=== PATIENT | female | born 1995 | race Caucasian/White ===

== ENCOUNTER 2016-08-23 17:27 | Observation (INO) | payer SELFPAY ==
[~2016-08-23] VITALS: Ht 162.6 cm; Wt 122.5 kg
[~2016-08-23 17:27] MED LIST: PREN-95 PO
== END 2016-08-23 20:40 | disposition home or self-care (01) ==
LOC: L&D 17:27
PROVIDERS: ADMIT Obstetrics & Gynecology; ATTEND Obstetrics & Gynecology
DX: O26.893 Other specified pregnancy related conditions, third trimester (principal); R10.9 Unspecified abdominal pain; Z3A.36 36 weeks gestation of pregnancy
CPT/HCPCS: G0378 ×2

== ENCOUNTER 2017-01-13 12:05 | Emergency (ER) | payer SELFPAY ==
[~2017-01-13] VITALS: Ht 167.6 cm; Wt 84.0 kg
[2017-01-13 12:11] VITALS: BP 133/87
== END 2017-01-13 12:45 | disposition left against medical advice (07) ==
LOC: ER 12:16
DX: M79.672 Pain in left foot (principal); Z88.0 Allergy status to penicillin
CPT/HCPCS: 81025; 99283

== ENCOUNTER 2017-04-29 10:31 | Emergency (ER) | payer SELFPAY | END 2017-04-29 11:53 | disposition left against medical advice (07) | LOC: ER 11:49 | DX: N89.8 Other specified noninflammatory disorders of vagina (principal); Z53.21 Procedure and treatment not carried out due to patient leaving prior to being seen by health care provider ==

== ENCOUNTER 2017-04-29 12:53 | Emergency (ER) | payer SELFPAY ==
[~2017-04-29] VITALS: Ht 162.6 cm; Wt 118.0 kg
[2017-04-29 14:03] VITALS: BP 138/82
== END 2017-04-29 19:09 | disposition left against medical advice (07) ==
LOC: ER 15:43
DX: N89.8 Other specified noninflammatory disorders of vagina (principal); Z53.21 Procedure and treatment not carried out due to patient leaving prior to being seen by health care provider

== ENCOUNTER 2017-07-07 01:49 | Emergency (ER) | payer SELFPAY ==
[~2017-07-07] VITALS: Ht 170.2 cm; Wt 124.8 kg
[2017-07-07 02:06] VITALS: BP 141/95
== END 2017-07-07 03:34 | disposition left against medical advice (07) ==
LOC: ER 01:49
DX: Z53.21 Procedure and treatment not carried out due to patient leaving prior to being seen by health care provider (principal)
CPT/HCPCS: 81025

== ENCOUNTER 2017-09-27 17:14 | Observation (INO) | payer SELFPAY ==
[~2017-09-27] VITALS: Ht 165.1 cm; Wt 131.5 kg
== END 2017-09-27 18:10 | disposition home or self-care (01) ==
LOC: L&D 17:14
PROVIDERS: ADMIT Specialist; ATTEND Specialist
DX: O62.9 Abnormality of forces of labor, unspecified (principal); Z3A.38 38 weeks gestation of pregnancy
CPT/HCPCS: 99281; G0378

== ENCOUNTER 2017-10-02 07:48 | Observation (INO) | payer MEDICAID ==
[~2017-10-02] VITALS: Ht 162.6 cm; Wt 131.5 kg
[2017-10-02] MEDS ORDERED: LACTATED RINGERS 1,000 ML IV SCH (09:10)
[2017-10-02 09:43] LABS: BASOPHILS % 0.3 % (0.0-2.0); HEMATOCRIT. 31.4 % (36.0-48.0); HEMOGLOBIN. 10.5 g/dL (12.0-16.0); LYMPHOCYTES % 22.8 % (20.0-50.0); MEAN CORPUSCULAR HEMOGLOBIN 26.8 pg (28.0-32.0); NEUTROPHILS % 66.9 % (40.0-76.0); RED BLOOD CELL COUNT 3.92 mill/uL (4.2-5.4); RED CELL DISTRIBUTION WIDTH 15.2 % (11.6-14.6)
[2017-10-02 09:43] LABS: CLARITY URINE CLOUDY (CLEAR); COLOR URINE YELLOW (YELLOW); KETONES URINE NEGATIVE (NEGATIVE); LEUKOCYTE ESTERASE URINE 1+ (NEGATIVE); NITRITE URINE NEGATIVE (NEGATIVE); OCCULT BLOOD URINE NEGATIVE (NEGATIVE); PROTEIN URINE NEGATIVE (NEGATIVE); SPECIFIC GRAVITY URINE 1.014 (1.005-1.030); UROBILINOGEN URINE 0.2 E.U./dL (0.2-1.0)
[2017-10-02 09:49] LABS: CHLORIDE 106 mEq/L (98-107)
[2017-10-02 09:55] LABS: INR 0.9; PROTHROMBIN TIME 9.4 sec (9.1-11.1)
[2017-10-02 10:24] LABS: PLATELET 128 x1000/uL (130-400)
== END 2017-10-02 11:43 | disposition home or self-care (01) ==
LOC: L&D 07:48
PROVIDERS: ADMIT Obstetrics & Gynecology; ATTEND Obstetrics & Gynecology
DX: O26.893 Other specified pregnancy related conditions, third trimester (principal); R10.30 Lower abdominal pain, unspecified; M54.5 Low back pain; Z3A.38 38 weeks gestation of pregnancy
CPT/HCPCS: 36415; 80053; 81003; 85025; 85384; 85610; 96360; 99281; G0378; J7120; 96361

== ENCOUNTER 2019-07-11 18:46 | Emergency (ER) | payer MEDICAID ==
[~2019-07-11] VITALS: Ht 162.6 cm; Wt 131.0 kg
[2019-07-11] MEDS ORDERED: ONDANSETRON HCL 4MG/2ML INJ IV STA (19:34)
[2019-07-11] MEDS ORDERED: MORPHINE SULFATE 4 MG/ML CPJ (NOT FOR IM USE) IV STA (19:34)
[2019-07-11] MEDS ORDERED: SODIUM CHLORIDE 0.9% 1,000 ML IV ONE (19:34)
[2019-07-11 20:13] LABS: BASOPHILS % 0.6 % (0.0-2.0); EOSINOPHILS % 1.4 % (0.0-5.0); HEMATOCRIT. 41.5 % (36.0-48.0); HEMOGLOBIN. 14.3 g/dL (12.0-16.0); LYMPHOCYTES % 18.3 % (20.0-50.0); MEAN CORPUSCULAR VOLUME 86.8 fL (81.0-99.0); MEAN PLATELET VOLUME 8.8 fl (7.4-10.4); MONOCYTES % 5.4 % (2.0-8.0); NEUTROPHILS % 74.3 % (40.0-76.0); PLATELET 259 x1000/uL (130-400); RED BLOOD CELL COUNT 4.78 mill/uL (4.2-5.4)
[2019-07-11 20:19] LABS: CHLORIDE 109 mEq/L (98-107)
[2019-07-11 20:22] LABS: CLARITY URINE CLEAR (CLEAR); COLOR URINE YELLOW (YELLOW); KETONES URINE TRACE (NEGATIVE); LEUKOCYTE ESTERASE URINE TRACE (NEGATIVE); NITRITE URINE NEGATIVE (NEGATIVE); OCCULT BLOOD URINE NEGATIVE (NEGATIVE); PH URINE 5.5 (4.5-8.0); PROTEIN URINE NEGATIVE (NEGATIVE); SPECIFIC GRAVITY URINE 1.028 (1.005-1.030)
[2019-07-11 22:23] VITALS: BP 128/81
== END 2019-07-11 22:50 | disposition left against medical advice (07) ==
LOC: ER 18:46
DX: R10.33 Periumbilical pain (principal); R19.7 Diarrhea, unspecified; F17.290 Nicotine dependence, other tobacco product, uncomplicated; Z98.890 Other specified postprocedural states; Z88.0 Allergy status to penicillin
CPT/HCPCS: 36415; 74176; 80053; 81003; 83690; 85025; 96361; 96374; 96375; 99285; 99406; J2270; J2405; J7030

== ENCOUNTER 2019-08-26 17:08 | Emergency (ER) | payer MEDICAID ==
[~2019-08-26] VITALS: Ht 167.6 cm; Wt 127.0 kg
[2019-08-26] MEDS ORDERED: SODIUM CHLORIDE 0.9% 1,000 ML IV ONE (17:41)
[2019-08-26 18:15] LABS: BASOPHILS % 0.6 % (0.0-2.0); EOSINOPHILS % 0.3 % (0.0-5.0); HEMATOCRIT. 48.9 % (36.0-48.0); HEMOGLOBIN. 16.7 g/dL (12.0-16.0); LYMPHOCYTES % 22.2 % (20.0-50.0); MEAN CORPUSCULAR HEMOGLOBIN 30.2 pg (28.0-32.0); MEAN CORPUSCULAR VOLUME 88.2 fL (81.0-99.0); MEAN PLATELET VOLUME 8.7 fl (7.4-10.4); MONOCYTES % 6.2 % (2.0-8.0); NEUTROPHILS % 70.7 % (40.0-76.0); PLATELET 306 x1000/uL (130-400); RED BLOOD CELL COUNT 5.54 mill/uL (4.2-5.4)
[2019-08-26 18:17] LABS: *BARBITURATES SCREEN URINE NEGATIVE (NEGATIVE); *BENZODIAZEPINES SCREEN URINE NEGATIVE (NEGATIVE); *COCAINE SCREEN URINE NEGATIVE (NEGATIVE); METHADONE URINE SCREEN NEGATIVE (NEGATIVE); OPIATES URINE SCREEN NEGATIVE (NEGATIVE)
[2019-08-26 18:17] LABS: CHLORIDE 109 mEq/L (98-107)
[2019-08-26 18:18] LABS: HCG SCREEN NEGATIVE
[2019-08-26 18:18] LABS: CANNABINOID URINE SCREEN NEGATIVE (NEGATIVE); PHENCYCLIDINE URINE SCREEN NEGATIVE (NEGATIVE)
[2019-08-26 18:21] LABS: *AMPHETAMINES SCREEN URINE PRESUMTIVE POSITIVE (NEGATIVE)
[2019-08-26 18:21] LABS: ETHANOL BLOOD 95 mg/dL
[2019-08-26 18:24] LABS: PROTHROMBIN TIME 10.3 sec (9.6-11.0)
[2019-08-26] MEDS ORDERED: ONDANSETRON HCL 4MG/2ML INJ IV ONE (20:00)
[2019-08-26] MEDS ORDERED: IOHEXOL-300 100 ML BOTTLE ONE (23:04)
[2019-08-26 23:31] VITALS: BP 123/75
== END 2019-08-26 23:33 | disposition home or self-care (01) ==
LOC: ER 17:08
DX: F19.10 Other psychoactive substance abuse, uncomplicated (principal); R10.30 Lower abdominal pain, unspecified; R51 Headache; M54.2 Cervicalgia; Y08.89XA Assault by other specified means, initial encounter; Y93.9 Activity, unspecified; Y92.9 Unspecified place or not applicable; Z88.0 Allergy status to penicillin
CPT/HCPCS: 36415; 70450; 71045; 71260; 72125; 74177; 80053; 80305; 80320; 81025; 84703; 85025; 85610; 96361; 96374; 99285; J2405; J7030; Q9967; G0480

== ENCOUNTER 2020-06-05 20:20 | Observation (INO) | payer MEDICAID ==
[~2020-06-05] VITALS: Ht 162.6 cm; Wt 133.8 kg
[2020-06-05] MEDS ORDERED: LACTATED RINGERS 1,000 ML IV SCH (21:45)
[2020-06-05 23:16] LABS: BASOPHILS % 0.1 % (0.0-2.0); HEMATOCRIT. 33.8 % (36.0-48.0); LYMPHOCYTES % 16.2 % (20.0-50.0); MEAN CORPUSCULAR HEMOGLOBIN 30.1 pg (28.0-32.0); MEAN CORPUSCULAR VOLUME 85.1 fL (81.0-99.0); MEAN PLATELET VOLUME 9.4 fl (7.4-10.4); NEUTROPHILS % 77.7 % (40.0-76.0); PLATELET 192 x1000/uL (130-400); RED BLOOD CELL COUNT 3.97 mill/uL (4.2-5.4); RED CELL DISTRIBUTION WIDTH 13.3 % (11.6-14.6)
[2020-06-05 23:16] LABS: CLARITY URINE CLOUDY (CLEAR); COLOR URINE DARK YELLOW (YELLOW); KETONES URINE TRACE (NEGATIVE); LEUKOCYTE ESTERASE URINE 1+ (NEGATIVE); NITRITE URINE NEGATIVE (NEGATIVE); OCCULT BLOOD URINE NEGATIVE (NEGATIVE); PROTEIN URINE TRACE (NEGATIVE); SPECIFIC GRAVITY URINE 1.031 (1.005-1.030)
[2020-06-05 23:27] LABS: *AMPHETAMINES SCREEN URINE NEGATIVE (NEGATIVE); *BARBITURATES SCREEN URINE NEGATIVE (NEGATIVE); *BENZODIAZEPINES SCREEN URINE NEGATIVE (NEGATIVE); *COCAINE SCREEN URINE NEGATIVE (NEGATIVE)
[2020-06-05 23:28] LABS: CANNABINOID URINE SCREEN NEGATIVE (NEGATIVE); METHADONE URINE SCREEN NEGATIVE (NEGATIVE); OPIATES URINE SCREEN NEGATIVE (NEGATIVE); PHENCYCLIDINE URINE SCREEN NEGATIVE (NEGATIVE)
[2020-06-05 23:55] LABS: PARTIAL THROMBOPLASTIN TIME 28.3 sec (23.4-31.0); PROTHROMBIN TIME 10.3 sec (9.6-11.0)
[2020-06-06 00:03] LABS: HEPATITIS B SURFACE ANTIGEN NEGATIVE
== END 2020-06-06 00:06 | disposition home or self-care (01) ==
LOC: 8 EST LDRP 20:20
PROVIDERS: ADMIT Specialist; ATTEND Specialist
DX: O26.893 Other specified pregnancy related conditions, third trimester (principal); R10.30 Lower abdominal pain, unspecified; Z3A.32 32 weeks gestation of pregnancy; Z79.899 Other long term (current) drug therapy
CPT/HCPCS: 36415; 59025; 76805; 76817; 76818; 80305; 81003; 85025; 85610; 85730; 86592; 86703; 86762; 86850; 86900; 86901; 87340; 96360; 96361; G0378; 99281

== ENCOUNTER 2020-07-29 20:34 | Emergency (ER) | payer MEDICAID ==
[~2020-07-29] VITALS: Ht 162.6 cm; Wt 131.0 kg
[2020-07-29 21:45] VITALS: BP 152/84
== END 2020-07-29 22:45 | disposition left against medical advice (07) ==
LOC: ER 20:34
DX: Z53.21 Procedure and treatment not carried out due to patient leaving prior to being seen by health care provider (principal)

== ENCOUNTER 2020-07-31 19:03 | Emergency (ER) | payer MEDICAID ==
[~2020-07-31] VITALS: Ht 162.6 cm; Wt 131.0 kg
[2020-07-31] MEDS ORDERED: SODIUM CHLORIDE 0.9% 1,000 ML IV ONE (20:45)
[2020-07-31 21:25] LABS: BASOPHILS % 0.8 % (0.0-2.0); EOSINOPHILS % 1.7 % (0.0-5.0); HEMATOCRIT. 32.7 % (36.0-48.0); MEAN CORPUSCULAR HEMOGLOBIN 28.6 pg (28.0-32.0); MEAN PLATELET VOLUME 8.7 fl (7.4-10.4); MONOCYTES % 6.8 % (2.0-8.0); NEUTROPHILS % 69.7 % (40.0-76.0); PLATELET 399 x1000/uL (130-400); RED BLOOD CELL COUNT 3.85 mill/uL (4.2-5.4); RED CELL DISTRIBUTION WIDTH 14.3 % (11.6-14.6)
[2020-07-31 21:33] LABS: CHLORIDE 106 mEq/L (98-107)
[2020-07-31 21:43] LABS: CLARITY URINE CLOUDY (CLEAR); COLOR URINE YELLOW (YELLOW); KETONES URINE TRACE (NEGATIVE); LEUKOCYTE ESTERASE URINE 2+ (NEGATIVE); NITRITE URINE NEGATIVE (NEGATIVE); OCCULT BLOOD URINE 2+ (NEGATIVE); PROTEIN URINE TRACE (NEGATIVE); SPECIFIC GRAVITY URINE 1.031 (1.005-1.030)
[2020-07-31] MEDS ORDERED: IBUPROFEN 400MG TABLET PO ONE (23:30)
[2020-08-01] MEDS ORDERED: DOXYCYCLINE 100MG in DEXTROSE 5% WATER 100ML IV SCH (00:30)
[2020-08-01] MEDS ORDERED: METRONIDAZOLE 500 MG PREMIX 100 ML IV ONE (00:30)
[2020-08-01] MEDS ORDERED: DOXYCYCLINE HYCLATE 100 MG/VIAL IV ONE (00:30)
[2020-08-01] MEDS ORDERED: DOXY100C2 MT (03:24)
[2020-08-01] MEDS ORDERED: IBUP-2028 MT (03:25)
[2020-08-01] MEDS ORDERED: METR500T MT (03:25)
[2020-08-01 04:00] VITALS: BP 134/81
[2020-08-01] MEDS ORDERED: IOHEXOL-300 100 ML BOTTLE ONE (07:05)
== END 2020-08-01 04:03 | disposition home or self-care (01) ==
LOC: ER 19:03
DX: A41.9 Sepsis, unspecified organism (principal); L90.5 Scar conditions and fibrosis of skin; E86.0 Dehydration; Z98.890 Other specified postprocedural states; Z88.0 Allergy status to penicillin; Z79.899 Other long term (current) drug therapy
CPT/HCPCS: 36415; 74177; 76830; 76856; 80053; 81003; 83690; 85025; 96361; 96365; 96375; 99285; J3490; J7030; J7060; Q9967; Z7610

== ENCOUNTER 2023-04-02 12:24 | Emergency (ER) | payer MEDICAID ==
[~2023-04-02] VITALS: Ht 165.1 cm; Wt 200.0 kg
[~2023-04-02 12:24] MED LIST changes: +DOXY100C5 MT; +IBUP-2028 MT; +METR500T MT; -PREN-95 PO
[2023-04-02 12:28] VITALS: O2SAT 98
[2023-04-02 14:06] LABS: BASOPHILS % 0.4 % (0.0-2.0); EOSINOPHILS % 2.7 % (0.0-5.0); HEMATOCRIT. 43.2 % (36.0-48.0); HEMOGLOBIN. 14.9 g/dL (12.0-16.0); MEAN CORPUSCULAR HEMOGLOBIN 31.2 pg (28.0-32.0); MEAN CORPUSCULAR HGB CONC 34.6 g/dL (31.0-37.0); MEAN CORPUSCULAR VOLUME 90.3 fL (81.0-99.0); MEAN PLATELET VOLUME 9.5 fl (7.4-10.4); MONOCYTES % 6.5 % (2.0-8.0); NEUTROPHILS % 60.4 % (40.0-76.0); PLATELET 231 x1000/uL (130-400); RED BLOOD CELL COUNT 4.79 mill/uL (4.2-5.4); RED CELL DISTRIBUTION WIDTH 13.1 % (11.6-14.6); WHITE BLOOD COUNT 7.6 x1000/uL (4.5-11.0)
[2023-04-02 14:20] LABS: ALANINE AMINOTRANSFERASE 55 IU/L (10-49); ALBUMIN 4.4 g/dL (3.2-4.8); ASPARTATE AMINOTRANSFERASE 61 IU/L (<34); BILIRUBIN TOTAL 0.7 mg/dL (0.1-1.0); CARBON DIOXIDE 22 mEq/L (21-32); CHLORIDE 105 mEq/L (98-107); CREATININE 0.6 mg/dL (0.6-1.0); GLUCOSE 104 mg/dL (70-105); POTASSIUM 4.1 mEq/L (3.5-5.1); SODIUM 136 mEq/L (136-145); UREA NITROGEN BLOOD 13 mg/dL (9-23)
[2023-04-02] MEDS: KETOROLAC 60MG/2ML VIAL IM ONE (14:45)
[2023-04-02] MEDS: ONDANSETRON 4MG ODT PO ONE (14:45)
[2023-04-02 14:58] LABS: CLARITY URINE CLEAR (CLEAR); COLOR URINE YELLOW (YELLOW); GLUCOSE URINE NEGATIVE (NEGATIVE); KETONES URINE NEGATIVE (NEGATIVE); LEUKOCYTE ESTERASE URINE NEGATIVE (NEGATIVE); NITRITE URINE NEGATIVE (NEGATIVE); OCCULT BLOOD URINE NEGATIVE (NEGATIVE); PH URINE 5.5 (4.5-8.0); PROTEIN URINE NEGATIVE (NEGATIVE); SPECIFIC GRAVITY URINE 1.012 (1.005-1.030); UROBILINOGEN URINE 0.2 E.U./dL (0.2-1.0)
[2023-04-02 15:12] LABS: HCG SCREEN NEGATIVE
[2023-04-02] MEDS ORDERED: IBUP-2028 MT (16:55)
[2023-04-02 17:06] VITALS: BP 138/78; PULSE 74; RESP 18; TEMP 98.3
== END 2023-04-02 17:07 | disposition home or self-care (01) ==
LOC: ER 12:24
DX: K46.9 Unspecified abdominal hernia without obstruction or gangrene (principal); Z88.0 Allergy status to penicillin; Z90.49 Acquired absence of other specified parts of digestive tract; Z98.890 Other specified postprocedural states
CPT/HCPCS: 99285; 74176; 80053; 81003; 81025; 84703; 83690; 85025; 36415; 96372; Q0162; J1885

== ENCOUNTER 2024-06-01 01:50 | Emergency (ER) | payer MEDICAID ==
[~2024-06-01] VITALS: Ht 162.6 cm; Wt 169.2 kg
[2024-06-01 01:54] VITALS: O2SAT 100
[2024-06-01 02:02] VITALS: BP 179/110; PULSE 98; RESP 18; TEMP 36.7; O2SAT 100
[2024-06-01] MEDS: KETOROLAC 30MG/ML VIAL IM ONE (03:00)
[2024-06-01 03:09] LABS: CHLORIDE 96 mEq/L (98-107); POTASSIUM 4.2 mEq/L (3.5-5.1); SODIUM 131 mEq/L (136-145)
[2024-06-01 03:10] LABS: CALCIUM 9.9 mg/dL (8.7-10.4); CARBON DIOXIDE 24 mEq/L (21-32)
[2024-06-01 03:15] LABS: CREATININE 0.7 mg/dL (0.6-1.0); GLUCOSE 378 mg/dL (70-105); UREA NITROGEN BLOOD 8 mg/dL (9-23)
[2024-06-01 03:17] LABS: ALANINE AMINOTRANSFERASE 98 IU/L (10-49); ALBUMIN 4.3 g/dL (3.2-4.8); ASPARTATE AMINOTRANSFERASE 102 IU/L (<34); BILIRUBIN DIRECT 0.4 mg/dL (<=3.0)
[2024-06-01 03:18] LABS: BILIRUBIN TOTAL 1.5 mg/dL (0.1-1.0); PROTEIN TOTAL 7.5 g/dL (6.0-8.3)
[2024-06-01 03:43] LABS: HCG SCREEN NEGATIVE
[2024-06-01 04:01] LABS: BASOPHILS % 0.7 % (0.0-2.0); EOSINOPHILS % 2.5 % (0.0-5.0); HEMATOCRIT. 43.4 % (36.0-48.0); HEMOGLOBIN. 14.8 g/dL (12.0-16.0); LYMPHOCYTES % 35.8 % (20.0-50.0); MEAN CORPUSCULAR HEMOGLOBIN 31.6 pg (28.0-32.0); MEAN CORPUSCULAR VOLUME 92.9 fL (81.0-99.0); MEAN PLATELET VOLUME 8.9 fl (7.4-10.4); MONOCYTES % 8.2 % (2.0-8.0); NEUTROPHILS % 52.8 % (40.0-76.0); PLATELET 190 x1000/uL (130-400); RED BLOOD CELL COUNT 4.67 mill/uL (4.2-5.4); RED CELL DISTRIBUTION WIDTH 12.5 % (11.6-14.6); WHITE BLOOD COUNT 7.8 x1000/uL (4.5-11.0)
[2024-06-01] MEDS ORDERED: NAPR-1176 MT (04:07)
== END 2024-06-01 04:18 | disposition home or self-care (01) ==
LOC: ER 01:50
DX: K43.9 Ventral hernia without obstruction or gangrene (principal); Z90.49 Acquired absence of other specified parts of digestive tract; Z98.890 Other specified postprocedural states; Z79.899 Other long term (current) drug therapy; Z88.0 Allergy status to penicillin; Z88.1 Allergy status to other antibiotic agents
CPT/HCPCS: 99285; 74176; 80076; 80048; 84703; 83690; 85025; 36415; 96372; J1885